=== PATIENT | female | born 1985 | race Caucasian/White ===

== ENCOUNTER 2016-11-18 09:11 | Emergency (ER) | payer OTHER ==
[~2016-11-18] VITALS: Ht 167.6 cm; Wt 81.8 kg
[2016-11-18 09:14] VITALS: BP 124/83; PULSE 75; RESP 30; O2SAT 100
--- NOTE | 2016-11-18 09:26 | ED.REPORT ---
HPI-General Illness Date of Service Nov 18, 2016 ED Provider: Eric Cox MD Patient is a 31 year old female with a history of anxiety and panic attacks who presents to the ED due to a panic attack. The patient reports that she felt like she couldn't breath. She denies chest pain, fever, or leg swelling. The patient reports that she went to visit her last night and they wouldn't let her. Her was admitted to the hospital yesterday for homicidal ideations. She recently started a new medication for anxiety but doesn't currently take anything for panic attacks. Patient states that she hasn't had a panic attack for the past few months. Nursing Notes Stated Complaint: PANIC ATTACK Chief Complaint: General Complaint Nursing Notes Reviewed: Yes Allergies: Coded Allergies: No Known Allergies (Verified , 06/15/06) General Time Seen by MD: 09:26 Chief Complaint Other (panic attack) Hx Obtained From: Patient Arrived By: Walk-in Sudden in Onset?: Yes Symptom Duration: Since onset Recent Healthcare: No recent doctor visit, No recent hospitalization Similar Sx Previous: Yes Past Medical History Past Medical History anxiety panic attacks Past Surgical History none reported Social History Alcohol Use: Denies alcohol use Drug Use: Denies drug use Other Social History: Ambulatory Status Independent Review of Systems Full Review of Systems Constitutional: Denies: Fever Respiratory: Denies: Non-productive cough, Shortness of breath Cardiovascular: Denies: Chest pain Musculoskeletal: Denies: Extremity swelling Psychiatric: Reports: Anxiety, Stress Complete sys rev & neg: except as marked. Physical Exam Vital Signs Vital Signs Date Time Temp Pulse Resp B/P Pulse Ox O2 Delivery O2 Flow Rate FiO2 11/18/16 10:47 63 18 106/69 100 Room Air 11/18/16 09:14 37.0 75 30 124/83 100 Room Air Initial VS: Reviewed General/Constitutional: Awake, Alert Behavior: Positive: Anxious, Tearful Head / Eyes: Atraumatic, Normocephalic, PERRL, EOMI Respiratory / Chest: Atraumatic, No respiratory distress Upper Extremities Upper Extremity / MS: Atraumatic, Full range of motion Skin: Atraumatic, Color NL, No rash, Warm, Dry Neurologic: Oriented X3, Speech NL, No motor deficits, No sensory deficits Psychiatric: Affect NL, Mood NL Re-Eval/Medical Decision Time of Eval: 10:33 Patient Status: Condition improved Re-Evaluation/Progress Note: Discussed results and plan for discharge. The patient understands and agrees to the plan for discharge. All questions were addressed. Counseled Regarding: Diagnosis, Lab results, Need for follow-up, When/why to return to ED Discharge & Departure Primary Impression: Panic attack Disposition: Home Discharge Condition All VS Reviewed: Yes Condition: Stable Patient Instructions: Panic Attack (ED) Additional Instructions: Thank you for trusting us with your care. I'm sorry you are having to deal with all of this. You should follow up with your primary care physician next week to discuss your panic attacks. Please return to the emergency department if you develop any new or worsening symptoms including shortness of breath, another panic attack or any concerning symptoms. Referrals: Colten Henry MD (PCP) Domenic Attestation Portions of this note were transcribed by Ilda Mendoza. I, Dr. Alex Abel personally performed the history, physical exam and medical decision-making; I reviewed and confirmed the accuracy of the information in the transcribed note. Signed by: Domenic Wilhelm, 11/18/16 and 1003 copies to: Colten Henry MD, Timothy S DO Nov 18, 2016 09:26 Melva Mendoza Nov 18, 2016 10:04
[2016-11-18] MEDS ORDERED: LORazepam 1 mg Tablet PO ONE (09:50)
[2016-11-18 10:47] VITALS: BP 106/69; PULSE 63; RESP 18; O2SAT 100
== END 2016-11-18 10:49 | disposition home or self-care (01) ==
LOC: SED 09:11
DX: F41.0 Panic disorder [episodic paroxysmal anxiety] (principal)